=== PATIENT | female | born 1995 | race Caucasian/White ===

== ENCOUNTER 2017-08-14 14:33 | Emergency (ER) | payer OTHER ==
[2017-08-14 15:01] VITALS: BP 129/75
--- NOTE | 2017-08-14 23:28 | Emergency Department Report ---
[facility] Chief Complaint: Eye Problems Stated Complaint: RED EYES Time Seen by Provider: 08/14/17 22:33 Duration: 2 Days Side: Bilateral Severity: moderate Symptoms: Yes Eye Itching, Yes Eye Redness, Yes Mucous Drainage, No Eye Pain, No Purulent Drainage, No Blurred Vision, No Preceding URI, No H/O Allergic Rhinitis, No Contact Lens Use, No Trauma, No Fever, No Headache Other History: This is a 22 y.o. female, presents with bilateral eye redness, irritation and sore throat for 2 days. She is using clear eye drops with minimal improvement. She wears prescription eye glasses. Denies changed in vision. ED Review of Systems ROS: Stated complaint: RED EYES Other details as noted in HPI Constitutional: no symptoms reported Eyes: eye pain (itching), eye discharge. denies: vision change ENT: throat pain Respiratory: no symptoms reported, see HPI. denies: cough, orthopnea, shortness of breath, SOB with exertion, SOB at rest, stridor, wheezing Cardiovascular: denies: chest pain, palpitations Gastrointestinal: denies: abdominal pain, nausea, diarrhea Neurological: denies: headache, weakness, paresthesias ED Past Medical Hx - Past Medical History Previous Medical History?: Yes - Surgical History Past Surgical History?: No - Social History Smoking Status: Never Smoker Substance Use Type: Alcohol - Medications Home Medications: Home Medications Medication Instructions Recorded Confirmed Last Taken Type Ciprofloxacin 0.3% (Nf) 2.5 ml OP 4XD 5 Days #1 bottle 08/14/17 Unknown Rx [Ciprofloxacin OPTH] [facility] Exam - Exam General: Vital signs noted. No distress. Alert and acting appropriately. Eye Exam: Both Injection, Both EOMI, Both Mucous Discharge, Neither Chemosis, Neither Abnormal Pupil, Neither Eye Foreign Body, Neither Lid Foreign Body, Neither Purulent Discharge, Neither Fluorescein Uptake, Neither Fluorescein Uptake (slit lamp), Neither Cell/Flare (slit lamp), Neither Corneal Edema, Neither Photophobia HEENT: No Nasal Congestion, No Pharyngeal Erythema Remainder of HEENT: Normal Lungs: Yes Clear Lung Sounds, Yes Good Air Exchange, No Wheezes, No Stridor, No Cough, No Nasal Flaring, No Retractions, No Use of Accessory Muscles ED Course Vital Signs 08/14/17 14:57 Temperature 98.4 F Pulse Rate 67 Respiratory 20 Rate Blood Pressure 129/75 O2 Sat by Pulse 98 Oximetry ED Medical Decision Making - Medical Decision Making This is a 22 y.o. female presents with bilateral eye redness and irritation for 2 days. Reports taking clear eye drops with minimal improvement. Denies visual change. Visual acuity exam 20/20 OU Physical exam injected bilaterally, clear discharge, no swelling Conjunctivitis: discharged home with ciprodex gtts. Follow up with PCP in 48 hours if no improvement. Critical care attestation.: If time is entered above; I have spent that time in minutes in the direct care of this critically ill patient, excluding procedure time. ED Disposition Clinical Impression: Conjunctivitis Qualifiers: Conjunctivitis type: acute Acute conjunctivitis type: bacterial Laterality: bilateral Qualified Code(s): H10.33 - Unspecified acute conjunctivitis, bilateral Disposition: TO HOME OR SELFCARE Is pt being admited?: No Does the pt Need Aspirin: No Condition: Stable Instructions: Conjunctivitis (ED) Additional Instructions: Wash hands frequently. Use warm compress for symptom relief. Take medication as prescribed for full course. Follow up with Primary Care Provider in 72 hours if no improvement. Prescriptions: Ciprofloxacin 0.3% (Nf) [Ciprofloxacin OPTH] 2.5 ml OP 4XD 5 Days #1 bottle Referrals: [facility] [Outside] - 3-5 Days [facility] [Outside] - 3-5 Days [facility] [Outside] - 3-5 Days Forms: Work/School Release Form(ED) Time of Disposition: 23:51 Print Language: NEPALI
== END 2017-08-14 23:57 | disposition home or self-care (01) ==
LOC: ED 14:33
DX: H10.33 Unspecified acute conjunctivitis, bilateral (principal)
CPT/HCPCS: 99283